=== PATIENT | female | born 1990 | race Caucasian/White ===

== ENCOUNTER 2020-06-11 17:24 | Emergency (ER) | payer OTHER, SELFPAY ==
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
[2020-06-11 17:46] VITALS: BP 125/83; PULSE 94; RESP 16; TEMP 37.3; O2SAT 100
== END 2020-06-11 18:04 | disposition home or self-care (01) ==
PROVIDERS: Emergency Provider Registered Nurse
DX: S13.9XXA Sprain of joints and ligaments of unspecified parts of neck, initial encounter (principal); V69.40XA Driver of heavy transport vehicle injured in collision with unspecified motor vehicles in traffic accident, initial encounter; Y99.0 Civilian activity done for income or pay; F32.9 Major depressive disorder, single episode, unspecified
CPT/HCPCS: 72040; 99213; G0463

== ENCOUNTER 2020-06-16 15:03 | Emergency (ER) | payer SELFPAY ==
--- NOTE | ~2020-06-16 | XR_ITS ---
XR ankle RT min 3V 06/16/2020 15:29 INDICATION: Right ankle pain PROCEDURE: 4 views right ankle COMPARISON: No prior studies for comparison. FINDINGS: Fracture, dislocation or subluxation is not identified. The soft tissues appear within norm al limits. No foreign bodies are identified. IMPRESSION: 1: NO ACUTE BONE OR JOINT ABNORMALITY IDENTIFIED. Reviewed, dictated and finalized at location A.
--- NOTE | 2020-06-16 15:07 | ED.GENADULT ---
HPI - General Adult General Chief complaint: Extremity Injury, Lower Stated complaint: Extremity injury, lower Time Seen by Provider: 06/16/20 15:25 Source: patient Mode of arrival: ambulatory Limitations: no limitations History of Present Illness HPI narrative: 30 year old female patient presents to the [facility] with complaints of right ankle pain. 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 Patient states that since then has been hurting. Patient states she has been taking Aleve, elevated and icing it. Denies wrapping her ankle. Patient states she is able to walk on it but walks more towards the inside of the foot. Denies any knee pain. Denies any hip pain. Related Data Home Medications Medication Instructions Recorded Confirmed clonazepam 06/11/20 duloxetine mg PO 06/11/20 trazodone 06/11/20 Allergies Allergy/AdvReac Type Severity Reaction Status Date / Time No Known Allergies Allergy Unverified 06/27/18 22:40 Review of Systems Review of Systems: Narrative: CONSTITUTIONAL: Denies fever, chills, or sweats. EYES: Denies visual changes, redness, or discharge. ENT: Denies rhinorrhea, congestion, sore throat, or otalgia. CARDIOVASCULAR: Denies chest pain, palpitations, or edema. RESPIRATORY: Denies cough or dyspnea. GASTROINTESTINAL: Denies abdominal pain, nausea, vomiting, or diarrhea. GENITOURINARY: Denies dysuria or hematuria. SKIN: Denies rash or itching. MUSCULOSKELETAL: Denies back pain, joint pain, or myalgia. Positive right ankle pain since yesterday NEUROLOGIC: Denies headache, numbness, or weakness. PSYCHIATRIC: Denies anxiety or depression. 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 There is no relevant family history pertinent to the presenting complaint. Exam Narrative: Exam Narrative: GENERAL: Well-appearing, well-nourished, and in no acute distress. HEAD: Normocephalic, atraumatic. EYES: PERRLA and EOMI. ENT: Nares clear, no rhinorrhea or epistaxis. Mucous membranes moist. NECK: Supple. No lymphadenopathy CHEST: Clear to auscultation. No respiratory distress. HEART: Regular rate and rhythm. No murmur heard. Normal peripheral pulses. ABDOMEN: Soft, nontender, nondistended, normal active bowel sounds. EXTREMITIES: Patient is able to bear weight and ambulate but has increased pain to the right ankle. The R ankle is without obvious asymmetry or deformity when compared to the L ankle. Patient can flex/extend, invert/precious. No obvious surface trauma, ecchymosis, there is some soft lateral malleolus. Anterior talofibular ligament, posterior talofibular ligament, calcaneofibular ligament nontender and without swelling. No tenderness or deformity of the midfoot or over the proximal fifth metatarsal. Good DP and posterior tibial pulses and sensation to light touch normal. Talar tilt test is negative for ligament laxity to valgus or vargus stress. Negative anterior draw. Peroneal nerve is intact with strong eversion and plantar flexion. SKIN: Warm, dry, no rash. NEURO: No focal deficits. Alert and oriented x3. Course Reevaluation(s) Reevaluation #1: Reevaluated patient and notified her that her x-ray is negative for any acute fractures. Discussed with patient that we will go ahead and wrap her right ankle with an Alexander wrap she can continue to elevate it, ice and take Tylenol
[2020-06-16 15:17] VITALS: BP 124/77; PULSE 86; RESP 12; TEMP 37.3; O2SAT 100
== END 2020-06-16 15:41 | disposition home or self-care (01) ==
PROVIDERS: Emergency Provider Nurse Practitioner Family
DX: S93.401A Sprain of unspecified ligament of right ankle, initial encounter (principal); X50.9XXA Other and unspecified overexertion or strenuous movements or postures, initial encounter; F32.9 Major depressive disorder, single episode, unspecified
CPT/HCPCS: 73610; 99213; G0463

== ENCOUNTER 2020-07-05 13:20 | Emergency (ER) | payer OTHER, SELFPAY ==
--- NOTE | ~2020-07-05 | XR_ITS ---
XR ankle RT min 3V 07/05/2020 13:44 INDICATION: Right ankle pain after twisting injury PROCEDURE: 4 views right ankle COMPARISON: 06/16/2020 FINDINGS: Fracture, dislocation or subluxation is not identified. Ankle mortise intact. The soft tiss ues appear within normal limits. No foreign bodies are identified. IMPRESSION: 1: NO ACUTE BONE OR JOINT ABNORMALITY IDENTIFIED. Reviewed, dictated and finalized at location B.
[2020-07-05 13:29] VITALS: BP 140/90; PULSE 83; RESP 20; TEMP 36.9; O2SAT 100
--- NOTE | 2020-07-05 14:27 | ED.LOWEXIN ---
HPI - Extremity Injury (Lower) General Chief Complaint: Extremity Injury, Lower Stated Complaint: INJURED R ANKLE Source: patient and RN notes reviewed Limitations: no limitations History of Present Illness HPI Narrative: The obese patient, who is on several mood medications, presents with right ankle discomfort. Patient states she works for [employer] and for the second time in a month she felt her right ankle give out. Prior x-rays have been noncontributory; symptoms are mild, worse with activity, located laterally. 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 She has some associated discomfort in her knee, by her kneecap. Discussed possible causes and will provide physical therapy exercises, splint suggestions, follow-up [podiatry, ortho,] etc. Related Data Home Medications Medication Instructions Recorded Confirmed clonazepam 1 mg PO DIRECTED 06/11/20 06/16/20 duloxetine 30 mg PO DAILY 06/11/20 06/16/20 trazodone 06/11/20 Allergies Allergy/AdvReac Type Severity Reaction Status Date / Time No Known Allergies Allergy Unverified 06/27/18 22:40 Review of Systems Review of Systems: Narrative: General/Constitutional: No weight loss,fever Eyes: N0: Redness,discharge Ears/Nose/Throat: No: Epistaxis,ear discharge Respiratory: Denies: Hemoptysis Gastrointestinal: No Vomiting, Bleeding-rectal Skin: No Lumps, eruption Neurologic: No Focal Weakness,Sz Hematologic: Denies: Petechiae/Purpura Psychiatric: No: Suicida ideationl All Other Systems: Reviewed and Negative PMFSH Social History Social History Smoking status: Never smoker 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 There is no relevant family history pertinent to the presenting complaint Exam Narrative: Exam Narrative: General Appearance: Well appearing, Well nourished, No distress EYE: PERRLA, EOMI, Conjunctiva clear Mouth/Throat: Normal appearing, Normal lips Supple Respiratory: Airway patent, No respiratory distress MS- ankle: Normal strength (mostly intact, limited flexion/extension by pain), Tenderness ( laterally, with mild decreased ROM), Swelling (laterally), Other (no anterior drawer, no collateral laxity, no Achilles tenderness, no fifth MT tenderness). Knee: Full strength, good ROM , no ant drawer, no collateral laxity, mild patellar tenderness, no fibular head tenderness Skin: Warm, Dry, Normal color Neurological: A&O x3, Speech clear, CN II-XII intact Psychiatric: Normal mood, Normal affect Course Vital Signs Vital signs: Vital Signs Temperature 98.4 F 07/05/20 13:29 Pulse Rate 83 07/05/20 13:29 Respiratory Rate 07/05/20 13:29 Blood Pressure 140/90 07/05/20 13:29 Pulse Oximetry 100 07/05/20 13:29 Temperature 98.4 F 07/05/20 13:29 Pulse Rate 83 07/05/20 13:29 Respiratory Rate 07/05/20 13:29 Blood Pressure 140/90 07/05/20 13:29 Pulse Oximetry 100 07/05/20 13:29 Discharge Plan Discharge Clinical Impression: Ankle weakness Patient Disposition: Home, Self-Care Condition: Stable Additional Instructions: per exercises handout Get splint/ support Prescriptions: New indomethacin 25 mg capsule 25 mg PO TID Qty: 10 RF: 1 No Action trazodone 50 mg tablet RF: 0 clonazepam 0.5 mg tablet 1 mg PO DIRECTED RF: 0 duloxetine 30 mg capsule,delayed release(DR/EC) 30 mg PO DAILY RF: 0 cyclobenzaprine 5 mg tablet 5 mg PO TID PRN (Reason: muscle spasm) Qty: 20 RF: 0 Follow-up/Referrals: PHYSICIAN,MEAT PUMPER [Primary Care Provider] -
== END 2020-07-05 14:30 | disposition home or self-care (01) ==
PROVIDERS: Emergency Provider Emergency Medicine
DX: M62.81 Muscle weakness (generalized) (principal); F32.9 Major depressive disorder, single episode, unspecified; F41.9 Anxiety disorder, unspecified
CPT/HCPCS: 73610; 99213; G0463

== ENCOUNTER 2021-05-21 17:47 | Emergency (ER) | payer OTHER, SELFPAY ==
[2021-05-21 17:57] VITALS: BP 129/78; PULSE 95; RESP 18; TEMP 37.2; O2SAT 100
--- NOTE | 2021-05-21 18:11 | ED.SKABFB ---
HPI - Skin/Abscess/Foreign Bdy General Chief complaint: Skin/Abscess/Foreign Body Stated complaint: Dog Bite Time Seen by Provider: 05/21/21 18:17 Source: patient and RN notes reviewed Mode of arrival: ambulatory Limitations: no limitations History of Present Illness HPI narrative: 31-year-old female presents concern for dog bite to the back of her right knee sustained at 330 today while at work. Reports that she was bit by a dog unknown to her through her pants. Reports she is up-to-date on her tetanus vaccination. Reports small amount of bleeding, bruising. Denies decreased strength, range of motion, sensation in the extremity. MD complaint: other (Dog bite) Related Data Home Medications Medication Instructions Recorded Confirmed clonazepam 1 mg PO DIRECTED 06/11/20 06/16/20 duloxetine 30 mg PO DAILY 06/11/20 06/16/20 doxycycline hyclate 50 mg PO DAILY 05/21/21 05/21/21 hydroxychloroquine 200 mg PO DAILY 05/21/21 05/21/21 spironolactone 100 mg PO DAILY 05/21/21 05/21/21 Allergies Allergy/AdvReac Type Severity Reaction Status Date / Time No Known Allergies Allergy Verified 05/21/21 18:06 Review of Systems Review of Systems: CONSTITUTIONAL: Denies malaise, chills, sweats, or fever. SKIN: Reports abrasion to the back of her right knee surrounded by bruising. 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 There is no relevant family history pertinent to the presenting complaint Exam Narrative: GENERAL: Well-appearing, well-nourished, and in no acute distress. HEAD: Normocephalic, atraumatic. EYES: PERRLA, conjunctivae clear ENT: Mucous membranes moist. NECK: Supple. No lymphadenopathy CHEST: Clear to auscultation. No respiratory distress. HEART: Regular rate and rhythm. SKIN: Warm, dry. 1.5 cm linear abrasion noted to the posterior right knee surrounded by small contusion without excessive erythema, no induration. No bleeding noted NEURO: Alert and oriented x3. PSYCH: Normal mood and affect Course Course Emergency Course: Patient is aware of diagnosis, understands and agrees to treatment plan. Anticipatory guidance given. Patient agrees to follow-up as directed and is aware of reasons to seek care at the emergency department. Portions of this record may have been created with voice recognition software Vital Signs Vital signs: Vital Signs Temperature 99 F 05/21/21 17:57 Pulse Rate 95 05/21/21 17:57 Respiratory Rate 18 05/21/21 17:57 Blood Pressure 129/78 05/21/21 17:57 Pulse Oximetry 100 05/21/21 17:57 Temperature 99 F 05/21/21 17:57 Pulse Rate 95 05/21/21 17:57 Respiratory Rate 18 05/21/21 17:57 Blood Pressure 129/78 05/21/21 17:57 Pulse Oximetry 100 05/21/21 17:57 Reviewed. MDM - Skin/Abscess/Foreign Bdy MDM Narrative Medical decision making narrative: Exam findings show no acute concerns or changes; patient is non-toxic appearing and is in no distress. Patient is appropriate for outpatient treatment and follow-up. Critical Care Time Critical Care Time Critical Care Time: No Discharge Plan Discharge Clinical Impression: Dog bite Qualifiers: Encounter type: initial encounter Qualified Code(s): W54.0XXA - Bitten by dog, initial encount
== END 2021-05-21 18:32 | disposition home or self-care (01) ==
PROVIDERS: Emergency Provider Nurse Practitioner
DX: S81.051A Open bite, right knee, initial encounter (principal); W54.0XXA Bitten by dog, initial encounter; F32.9 Major depressive disorder, single episode, unspecified
CPT/HCPCS: 99212; G0463

== ENCOUNTER 2024-08-07 16:42 | Emergency (ER) | payer OTHER, SELFPAY ==
--- NOTE | ~2024-08-07 | XR_ITS ---
HISTORY: swelling COMPARISON: None TECHNIQUE: 4 views of the left knee were performed. FINDINGS: No acute or subacute fracture, erosion, lytic or sclerotic lesion. Joint spaces are preserved and alignment is normal. Soft tissues are unremarkable without radiopaque foreign body or significant calcification. Normal mineralization. IMPRESSION: Unremarkable radiograph of the left knee, as detailed above. No acute fracture or dislocation Reviewed, dictated and finalized at location A.
--- NOTE | 2024-08-07 16:48 | ED.LOWEXIN ---
HPI - Extremity Injury (Lower) General Chief Complaint: Extremity Injury, Lower Stated Complaint: Left Knee Swelling Time Seen by Provider: 08/07/24 16:45 Source: patient Mode of arrival: ambulatory Limitations: no limitations History of Present Illness HPI Narrative: Patient is a 34-year-old female that presents with left knee pain that has worsened over the past month. Patient has history of arthritis no reports warmth and swelling to right medial knee. Also feels crunch when she is walking. Patient is on her feet constantly for her job. Denies any numbness, tingling or weakness to distal portion of length. Does not wear knee brace Related Data Home Medications Medication Instructions Recorded Confirmed clonazepam 0.5 mg tablet 0.5 mg PO DIRECTED 06/11/20 08/07/24 duloxetine 30 mg capsule,delayed 30 mg PO DAILY 06/11/20 08/07/24 release hydroxychloroquine 200 mg tablet 200 mg PO DAILY 05/21/21 08/07/24 spironolactone 100 mg tablet 100 mg PO DAILY 05/21/21 08/07/24 buspirone 10 mg tablet 10 mg PO TID 08/07/24 08/07/24 duloxetine 60 mg capsule,delayed 60 mg PO DAILY 08/07/24 08/07/24 release ergocalciferol (vitamin D2) 1,250 See Rx Instructions .Route .COMPLEX 08/07/24 08/07/24 mcg (50,000 unit) capsule lamotrigine 100 mg tablet 100 mg PO BID 08/07/24 08/07/24 quetiapine 25 mg tablet 25 mg PO DAILY 08/07/24 08/07/24 quetiapine 50 mg tablet 50 mg PO DAILY 08/07/24 08/07/24 Allergies Allergy/AdvReac Type Severity Reaction Status Date / Time No Known Allergies Allergy Verified 05/21/21 18:06 Review of Systems Review of Systems: All systems reviewed & are unremarkable except as noted in HPI and below Constitutional: Constitutional: Denies body ache(s), Denies chills, Denies fatigue, Denies fever(s), Denies headache(s), Denies malaise and Denies weakness Eyes: Eyes: Denies blurry vision, Denies irritation and Denies loss of vision ENT: Denies otalgia, Denies headache(s), Denies nasal discharge, Denies sinus pain and Denies sore throat Cardiovascular: Cardiovascular: Denies chest pain, Denies irregular heart rhythm and Denies dyspnea Respiratory: Respiratory: Denies dyspnea Gastrointestinal: Gastrointestinal: Denies abdominal pain, Denies melena, Denies hematochezia, Denies diarrhea, Denies nausea and Denies vomiting Musculoskeletal: Musculoskeletal: Denies back pain, Denies myalgias, Reports arthralgias and Reports joint swelling Integumentary/Breasts: Skin/Breast: Denies pruritus and Denies rash Neurologic: Denies headache(s), Denies loss of vision and Denies weakness Psychiatric: Psychiatric: Reports no additional psychiatric complaints Endocrine: Endocrine: Denies fatigue PMFSH Past Medical History Medical History (Updated 08/07/24 @ 18:04 by Adrienne Colindres APRN) Depression Hypertension during Surgical History Surgical History Hx of cholecystectomy Previous section Social History Social History Smoking status: Never smoker Living arrangements: with family Occupation/Education: occupation 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 There is no relevant family history pertinent to the presenting complaint. Exam Const: General: cooperative, healthy appearing, comfortable, no acute distress and well nourished Nutritional Appearance: well nourished Orientation/consciousness: patient oriented x3 Limitations: no limitations HENMT: Head: normal to inspection, normocephalic and atraumatic Ears: hearing grossly normal bilaterally and external ears normal Face/Nose/Sinus: Normal external nose present, normal facial exam and face symmetric Face and sinus: normal facial exam and face s
[2024-08-07 16:50] VITALS: BP 118/78; PULSE 80; RESP 16; TEMP 37.1; O2SAT 100
== END 2024-08-07 18:05 | disposition home or self-care (01) ==
PROVIDERS: Emergency Provider Nurse Practitioner Family
DX: S83.92XA Sprain of unspecified site of left knee, initial encounter (principal); X58.XXXA Exposure to other specified factors, initial encounter; F32.A Depression, unspecified
CPT/HCPCS: 73564; 99213; G0463

== ENCOUNTER 2024-08-19 12:27 | Emergency (ER) | payer OTHER, SELFPAY ==
[2024-08-19 12:40] VITALS: BP 117/75; PULSE 89; RESP 18; TEMP 37.1; O2SAT 100
--- NOTE | 2024-08-19 12:59 | ED_ITS ---
HPI - URI/Sore Throat General Stated Complaint: wet cough/lac on back History of Present Illness HPI Narrative: Patient presents with a cough productive at times but denies any shortness of breath no chest pain. Patient also has a scratch to her back which has a local reaction to the area from adhesive tape. No drainage no streaking to the area. Patient denies any fever no body aches she has been taking multiple [id number] remedies for her cough and congestion. Related Data Home Medications Medication Instructions Recorded Confirmed clonazepam 0.5 mg tablet 0.5 mg PO DIRECTED 06/11/20 08/07/24 duloxetine 30 mg capsule,delayed 30 mg PO DAILY 06/11/20 08/07/24 release hydroxychloroquine 200 mg tablet 200 mg PO DAILY 05/21/21 08/07/24 spironolactone 100 mg tablet 100 mg PO DAILY 05/21/21 08/07/24 buspirone 10 mg tablet 10 mg PO TID 08/07/24 08/07/24 duloxetine 60 mg capsule,delayed 60 mg PO DAILY 08/07/24 08/07/24 release ergocalciferol (vitamin D2) 1,250 See Rx Instructions .Route .COMPLEX 08/07/24 08/07/24 mcg (50,000 unit) capsule lamotrigine 100 mg tablet 100 mg PO BID 08/07/24 08/07/24 quetiapine 25 mg tablet 25 mg PO DAILY 08/07/24 08/07/24 quetiapine 50 mg tablet 50 mg PO DAILY 08/07/24 08/07/24 Allergies Allergy/AdvReac Type Severity Reaction Status Date / Time No Known Allergies Allergy Verified 05/21/21 18:06 Review of Systems Review of Systems: CONSTITUTIONAL: Denies chills, or sweats. Reports fever and generalized body a ches EYES: Denies visual changes, redness, or discharge. ENT: Denies otalgia. Reports nasal congestion runny nose and sore throat CARDIOVASCULAR: Denies chest pain, palpitations, or edema. RESPIRATORY: Denies dyspnea. Reports occasional cough GASTROINTESTINAL: Denies abdominal pain, nausea, vomiting, or diarrhea. GENITOURINARY: Denies dysuria or hematuria. SKIN: Denies rash or itching. MUSCULOSKELETAL: Denies back pain, joint pain, or myalgia. Reports generalized body aches NEUROLOGIC: Denies headache, numbness, or weakness. PSYCHIATRIC: Denies anxiety or depression. [facility] Past Medical History Medical History (Updated 08/19/24 @ 13:01 by RODRIGUE Churchill) Depression Hypertension during Surgical History Surgical History Hx of cholecystectomy Previous section Social History Social History Smoking status: Never smoker Living arrangements: with family Occupation/Education: occupation Additional occupation/education comments: [employer] Gender identity (if verbalized by the patient): Female Comments At time of signature, agree with nursing past medical, surgical, social and family history. There is no relevant family history pertinent to the presenting complaint Exam Narrative: The patient is a well-developed, well-nourished in no acute distress. SKIN: Skin is warm and dry without erythema, swelling or exudate. There is good turgor. No tenting. Contact dermatitis No induration fluctuance or drainage. No surrounding erythremia. No lesions and TTP. No specific pattern or dermatomal distribution. Several different stages with occasional scabbing and excoriation. Spares palms and soles. Findings consistent with contact dermatitis. HEAD: Atraumatic. Normocephalic. No temporal or scalp tenderness. EYES: Moist and bright. Sclera and conjunctivae normal. No discharge. PERRLA. Extraocular motions intact. Gross visual acuity intact. EARS: Pinna is normal shape and contour. Clear external auditory canals. TM pearly abarca with good cone of light, no erythema or suppuration. Bilateral cerumen noted no gross hearing deficit. NOSE: pink, moist mucosa with good air movement. Clear rhinorrhea without nasal flaring. Septum midline. Mouth: moist mucous membranes. THROAT; mild erythema noted to posterior oropharynx with moderate postnasal drainage. Without exudate or ulceration.. Uvula midline. Normal movement of soft palate. NECK: Supple and nontender with full range of motion without discomfort. No meningeal signs. LUNGS: Equal and bilateral breath sounds with wheezes,no rales few scattered rhonchi left lower base CHEST: The chest wall is without retractions or use of accessory muscles. HEART: Has a regular rate and rhythm without murmur, gallops, click or rub. ABDOMEN: Soft, nontender with positive active bowel sounds. No rebound tenderness. EXTREMITIES: Without cyanosis, clubbing or edema. Equal 2+ distal pulses and 2 second capillary refill noted. NEUROLOGIC: alert, active, . The patient moves all extremities with normal muscle strength. Normal muscle tone is noted. Normal coordination is noted. NO focal neurological findings noted. Course Course Level of Care: Express Care Visit Vital Signs Vital signs: Vital Signs Temperature 37.1 C 08/19/24 12:40 Pulse Rate 89 08/19/24 12:40 Respiratory Rate 18 08/19/24 12:40 Blood Pressure 117/75 08/19/24 12:40 Pulse Oximetry 100 08/19/24 12:40 Oxygen Delivery Room Air 08/19/24 12:40 Temperature 37.1 C 08/19/24 12:40 Pulse Rate 89 08/19/24 12:40 Respiratory Rate 18 08/19/24 12:40 Blood Pressure 117/75 08/19/24 12:40 Pulse Oximetry 100 08/19/24 12:40 Oxygen Delivery Room Air 08/19/24 12:40 Discharge Plan Discharge Clinical Impression: Acute lower respiratory infection, Contact dermatitis Patient Disposition: Home, Self-Care Condition: Stable Instructions: Antibiotic Form, Contact Dermatitis (DC), Pneumonia (ED) Additional Instructions: 2. Rest and drink lots of fluids. Maintain a good diet, with foods rich in vitamins and minerals, and lots of fruits and vegetables. 3. Drinking hot tea, warm tea with honey, sucking on cough drops or hard candy, throat lozenges may help with sore throat. 4. OTC cough and cold medications are okay to take for your symptoms, including Mucinex expectorant. 5. If you have high BP, Coricidin HBP is behind the counter , you may ask your pharmacist for this. Otherwise, avoid medications that have a D at the end or a decongestant in them. These medications may increase your BP. 6. Breathing in warm, moist air, such as in the shower or a humidifier at your bedside or in your home. 7. Avoid smoking or being around those who smoke. 8. Protect yourself and others, cover your mouth when you cough and sneeze, and always wash your hands to prevent the spread of germs, if you are unable to, use hand nail artist. . . Prescriptions: New doxycycline hyclate 100 mg capsule 100 mg PO DAILY 7 Days Qty: 7 0RF triamcinolone acetonide 0.1 % cream 1 applic TOPICAL BID 5 Days Qty: 28.4 0RF albuterol sulfate 90 mcg/actuation HFA aerosol inhaler 2 puff inhalation QID 30 Days Qty: 1 0RF No Action ergocalciferol (vitamin D2) 1,250 mcg (50,000 unit) capsule See Rx Instructions .ROUTE .COMPLEX Rx Instructions: bid prn duloxetine 60 mg capsule,delayed release(DR/EC) 60 mg PO DAILY quetiapine 25 mg tablet 25 mg PO DAILY buspirone 10 mg tablet 10 mg PO TID quetiapine 50 mg tablet 50 mg PO DAILY lamotrigine 100 mg tablet 100 mg PO BID prednisone 20 mg tablet 40 mg PO DAILY 5 Days Qty: 10 0RF spironolactone 100 mg Tablet 100 mg PO DAILY hydroxychloroquine 200 mg Tablet 200 mg PO DAILY clonazepam 0.5 mg tablet 0.5 mg PO DIRECTED duloxetine 30 mg capsule,delayed release(DR/EC) 30 mg PO DAILY Follow-up/Referrals: PHYSICIAN NOT ON STAFF,NONSTAFF [Primary Care Provider] -
== END 2024-08-19 13:05 | disposition home or self-care (01) ==
PROVIDERS: Emergency Provider Nurse Practitioner Family
DX: J22 Unspecified acute lower respiratory infection (principal); L25.9 Unspecified contact dermatitis, unspecified cause; F32.A Depression, unspecified
CPT/HCPCS: 99213; G0463